=== PATIENT | female | born 1960 | race Caucasian/White ===

== ENCOUNTER 2022-05-18 07:09 | Emergency (ER) | payer SELFPAY ==
[~2022-05-18] VITALS: Ht 157.5 cm; Wt 73.5 kg
[2022-05-18 07:31] VITALS: BP 132/96
--- NOTE | 2022-05-18 08:19 | NUR ---
DR GOODSON AT PT SIDE FOR EVAL
[2022-05-18] MEDS ORDERED: KETOROLAC 30 MG/ML VIAL IM ONE (08:25)
[2022-05-18] MEDS ORDERED: NAPR-1704 PO (09:48)
[2022-05-18 10:02] VITALS: BP 126/77
--- NOTE | 2022-05-18 10:02 | NUR ---
Patient discharged with v/s stable. Written and verbal after care instructions ABOUT ACUTE BACK PAIN given and explained. Patient alert, oriented and verbalized understanding of instructions. Ambulatory with steady gait. All questions addressed prior to discharge. ID band removed. Patient advised to follow up with PMD. Rx of NARPOXEN given. Patient educated on indication of medication including possible reaction and side effects. Opportunity to ask questions provided and answered.
== END 2022-05-18 10:02 | disposition home or self-care (01) ==
LOC: MED 07:09
DX: M54.50 Low back pain, unspecified (principal); Z72.89 Other problems related to lifestyle
CPT/HCPCS: 96372; 99283; J1885